=== PATIENT | female | born 1980 | race Caucasian/White ===

== ENCOUNTER → 2016-09-05 | Outpatient (CLI) | payer OTHER | END | disposition home or self-care (01) | LOC: CFH 07:03 | PROVIDERS: ATTEND Internal Medicine Gastroenterology | DX: B18.2 Chronic viral hepatitis C (principal) | CPT/HCPCS: 76700 ==

== ENCOUNTER 2019-03-22 16:53 | Emergency (ER) | payer OTHER ==
[~2019-03-22] VITALS: Ht 167.6 cm; Wt 83.6 kg
[2019-03-22 17:00] VITALS: BP 140/92
[2019-03-22] MEDS ORDERED: OXYcodone/APAP 5/325MG TABLET PO ONE (18:00)
[2019-03-22] MEDS ORDERED: OXYcodone/APAP 5/325MG TABLET ONE (18:02)
[2019-03-22] MEDS ORDERED: SULFAMETH./TRIMETHOPRIM DS 800MG/160MG TABLET PO ONE (18:30)
[2019-03-22] MEDS ORDERED: CEPHALEXIN 500 MG CAPSULE PO ONE (18:30)
[2019-03-22] MEDS ORDERED: LIDOCAINE 1%-EPI 1:100K, 20ML SQ ONE (18:30)
[2019-03-22] MEDS ORDERED: PLEASE ENTER ALLERGIES MC SCH (18:30)
[2019-03-22] MEDS ORDERED: LIDOCAINE-MPF 1%, 5ML ONE (18:44)
[2019-03-22] MEDS ORDERED: SULFAMETH./TRIMETHOPRIM DS 800MG/160MG TABLET ONE (19:06)
[2019-03-22] MEDS ORDERED: CEPHALEXIN 500 MG CAPSULE ONE (19:06)
--- NOTE | 2019-03-22 19:56 | NUR ---
Patient given discharge instructions and they have confirmed that they understand the instructions. Patient ambulatory with steady gait.
== END 2019-03-22 19:57 | disposition home or self-care (01) ==
LOC: ED 18:37
DX: L02.413 Cutaneous abscess of right upper limb (principal); F17.200 Nicotine dependence, unspecified, uncomplicated
CPT/HCPCS: 10060; 76881; 99284; J3490

== ENCOUNTER 2019-08-06 19:53 | Emergency (ER) | payer OTHER ==
[~2019-08-06] VITALS: Ht 170.2 cm; Wt 89.5 kg
[2019-08-06 19:58] VITALS: BP 127/82
[2019-08-06] MEDS ORDERED: ALPR0.5T6 PO (20:30)
[2019-08-06] MEDS ORDERED: CEFAZOLIN 1,000 MG IM ONE (20:30)
[2019-08-06] MEDS ORDERED: CEFAZOLIN 1,000 MG ONE (20:36)
--- NOTE | 2019-08-06 21:13 | NUR ---
ANCEF GIVEN PER EMAR
== END 2019-08-06 22:07 | disposition home or self-care (01) ==
LOC: ED 21:01
DX: L03.116 Cellulitis of left lower limb (principal); Z87.891 Personal history of nicotine dependence
CPT/HCPCS: 73610; 93971; 96372; 99284; J0690

== ENCOUNTER 2020-12-02 04:57 | Emergency (ER) | payer OTHER ==
[~2020-12-02] VITALS: Ht 170.2 cm; Wt 86.0 kg
[~2020-12-02 04:57] MED LIST: ALPR0.5T93 PO
--- NOTE | 2020-12-02 05:36 | NUR ---
patients Sp02% decreased to mid 70's while sleeping on RA. Patient woken and Sp02% increased to mid 90's. Patient placed on 2L [place] supplemental oxygen. Provider iMchael BENTON notified
[2020-12-02 06:00] LABS: BASOPHILS % (AUTO) 1 % (0-1); EOSINOPHILS % (AUTO) 1 % (1-7); LYMPHOCYTES % (AUTO) 16 % (22-44); MEAN CORPUSCULAR HEMOGLOBIN 28.1 pg (27.0-34.8); MEAN CORPUSCULAR HGB CONC 34.1 g/dL (32.4-35.8); MEAN PLATELET VOLUME 8.1 fL (7.4-10.4); MONOCYTES % (AUTO) 6 % (2-9); NEUTROPHILS % (AUTO) 78 % (42-75); PLATELET COUNT 189 x10^3/uL (130-400); RED BLOOD COUNT 4.12 x10^6/uL (3.82-5.3); RED CELL DISTRIBUTION WIDTH 15.7 % (9.6-15.2)
[2020-12-02 06:09] LABS: ALANINE AMINOTRANSFERASE 24 U/L (12-78); ANION GAP 3 mmol/L (5-15); CALCIUM 8.1 mg/dL (8.5-10.1); CHLORIDE 106 mmol/L (98-107); CREATININE 0.51 mg/dL (0.55-1.02)
[2020-12-02 06:13] LABS: ALKALINE PHOSPHATASE 64 U/L (45-117); BILIRUBIN,TOTAL 0.3 mg/dL (0.2-1.0); TOTAL PROTEIN 7.5 g/dL (6.4-8.2)
--- NOTE | 2020-12-02 06:48 | NUR ---
REPORT GIVEN WENDI BARRY
--- NOTE | 2020-12-02 07:08 | NUR ---
PATIENT RESTING IN GURNEY WITH EYES CLOSED, RESP EVEN AND UNLABORED, CONNECTED TO MONITOR, VSS, CALL LIGHT WITHIN REACH. WAITING FOR CXR RESULTS.
--- NOTE | 2020-12-02 07:42 | NUR ---
AMBULATED PATIENT, O2 SATURATION 95%-96%. ERMD NOTIFIED.
[2020-12-02 07:43] VITALS: BP 106/65
--- NOTE | 2020-12-02 08:22 | NUR ---
Patient given discharge instructions and they have confirmed that they understand the instructions. Patient ambulatory with steady gait. NAD, all questions answered appropriately, denies additional needs at this time. No personal belongings left in room after discharge.
== END 2020-12-02 08:23 | disposition home or self-care (01) ==
LOC: ED 08:10
DX: U07.1 COVID-19 (principal); R06.00 Dyspnea, unspecified; R05 Cough; R50.9 Fever, unspecified; M79.10 Myalgia, unspecified site; F17.200 Nicotine dependence, unspecified, uncomplicated
CPT/HCPCS: 36415; 71045; 80053; 82728; 83615; 85025; 99285; U0003; U0005